=== PATIENT | female | born 1970 | race Hispanic/Latino ===

== ENCOUNTER → 2021-02-24 | Day surgery (SDC) | payer BC, OTHER ==
[2021-02-23 10:01] LABS: ANION GAP 12.9 mmol/L (8-16); CALCIUM 10.1 mg/dL (8.4-10.2); CREATININE, SERUM 0.74 mg/dL (0.57-1.11); POTASSIUM 3.9 mmol/L (3.5-5.1)
[~2021-02-24] MED LIST: ATORVASTATIN CA20 MG PO; BUPIVACAINE HCL 0.5% INJ 30 ML VIAL INJ ONE; CIPRO500 MG PO; DOXYCYCLINE HY100 MG PO; GEMFIBROZIL600 MG PO; GLIPIZIDE10 MG PO; LEXAPRO10 MG PO; LOSARTAN POTASS50 MG PO; LOVASTATIN10 MG PO; MELOXICAM7.5 MG PO; METFORMIN HCL500 MG PO; METOPROLOL SUCC25 MG PO; NOVOLOG MI100 UNIT/1 SQ; OMEPRAZOLE40 MG PO; SODIUM CHLORIDE 0.9% 250ML 250 ML ONE; TRESIBA FL100 UNIT/1 PO; Vancomycin IV 1 GM VIAL ONE
[2021-02-24 13:07] VITALS: BP 145/74
== END | disposition home or self-care (01) ==
LOC: OR 09:54
PROVIDERS: ATTEND Podiatrist Foot & Ankle Surgery
DX: E11.69 Type 2 diabetes mellitus with other specified complication (principal); M86.171 Other acute osteomyelitis, right ankle and foot; E11.621 Type 2 diabetes mellitus with foot ulcer; L97.516 Non-pressure chronic ulcer of other part of right foot with bone involvement without evidence of necrosis; L84 Corns and callosities; I10 Essential (primary) hypertension; Z01.810 Encounter for preprocedural cardiovascular examination; Z01.812 Encounter for preprocedural laboratory examination; Z20.822 Contact with and (suspected) exposure to COVID-19; Z79.4 Long term (current) use of insulin; Z86.73 Personal history of transient ischemic attack (TIA), and cerebral infarction without residual deficits
CPT/HCPCS: 28825; 36415 ×2; 80048; 82948; 87071; 87075; 87205; 88305; 88311; 93005; J3370; J7050; U0002; 88304